=== PATIENT | male | born 1935 | race Caucasian/White ===

== ENCOUNTER 2021-05-06 17:07 | Inpatient (IN) | payer OTHER ==
[~2021-05-06] VITALS: Ht 190.5 cm; Wt 85.3 kg
[2021-05-06] MEDS ORDERED: PIPERACILLIN/TAZ 3.375G PREMIX 50 ML IV ONE (17:30)
[2021-05-06] MEDS ORDERED: VANCOMYCIN 1 G PREMIX 200 ML IV ONE (17:30)
[2021-05-06] MEDS ORDERED: SODIUM CHLORIDE 0.9% 1000ML BAG (SEPSIS BOLUS) IV ONE (17:30)
[2021-05-06] MEDS ORDERED: MAGNESIUM 2 G PREMIX 50 ML IV ONE (17:45)
[2021-05-06 17:53] LABS: HEMATOCRIT. 22.8 % (42.0-52.0); HEMOGLOBIN. 7.1 g/dL (14.0-18.0); MEAN CORPUSCULAR HEMOGLOBIN 26.3 pg (28.0-32.0); MEAN CORPUSCULAR VOLUME 83.9 fL (80.0-94.0); MEAN PLATELET VOLUME 7.4 fl (7.4-10.4); PLATELET 329 x1000/uL (130-400); RED BLOOD CELL COUNT 2.71 mill/uL (4.7-6.1)
[2021-05-06 17:56] LABS: CHLORIDE 97 mEq/L (98-107)
[2021-05-06 18:05] LABS: CREATINE KINASE 696 IU/L (39-308)
[2021-05-06 18:06] LABS: CLARITY URINE CLEAR (CLEAR); COLOR URINE DARK YELLOW (YELLOW); KETONES URINE TRACE (NEGATIVE); LEUKOCYTE ESTERASE URINE TRACE (NEGATIVE); NITRITE URINE NEGATIVE (NEGATIVE); OCCULT BLOOD URINE NEGATIVE (NEGATIVE); PROTEIN URINE TRACE (NEGATIVE); SPECIFIC GRAVITY URINE 1.023 (1.005-1.030)
[2021-05-06 18:22] LABS: PLATELET ESTIMATE NORMAL
[2021-05-06] MEDS ORDERED: IPRATROPIUM/ALBUTEROL 0.5-3(2.5)MG/3ML NEB HHN PRN (19:15)
[2021-05-06] MEDS ORDERED: GUAIFENESIN 200MG/10ML SUGAR FREE UDC PO PRN (19:15)
[2021-05-06] MEDS ORDERED: CLONIDINE 0.1MG TABLET PO PRN (19:15)
[2021-05-06] MEDS ORDERED: DOCUSATE SODIUM 100MG CAPSULE PO PRN (19:15)
[2021-05-06] MEDS ORDERED: HYDRALAZINE 20MG/ML VIAL IV PRN (19:15)
[2021-05-06] MEDS ORDERED: ONDANSETRON HCL 4MG/2ML INJ IV PRN (19:15)
[2021-05-06] MEDS ORDERED: DIPHENHYDRAMINE 50MG/ML VIAL IV PRN (19:15)
[2021-05-06] MEDS ORDERED: VANCOMYCIN 1 G PREMIX 200 ML IV SCH (19:15)
[2021-05-06] MEDS ORDERED: PIPERACILLIN/TAZ 3.375G PREMIX 50 ML IV NR (19:15)
[2021-05-06] MEDS ORDERED: MAGNESIUM/ALUMINUM HYDROXIDE/SIMETHICONE 30ML UDC PO PRN (19:15)
[2021-05-06] MEDS ORDERED: LORAZEPAM 2MG/ML CPJ IV PRN (19:15)
[2021-05-06] MEDS: DEXT 5%/0.45% NACL 1000ML 1,000 ML IV SCH (19:53)
[2021-05-06] MEDS ORDERED: PHENYLEPHRINE 50 MG in DEXT 5% WATER 245 ML IV PRN (20:30)
[2021-05-06] MEDS ORDERED: NOREPINEPHRINE 8MG/250ML PMX 250 ML IV PRN (20:30)
[2021-05-06] MEDS ORDERED: DILTIAZEM HCL 5MG/ML 5ML VIAL IV PRN (20:30)
[2021-05-06] MEDS ORDERED: BISACODYL 10MG SUPP PR NR (20:45)
[2021-05-06] MEDS: PHENYLEPHRINE 50 MG in DEXT 5% WATER 245 ML IV PRN (20:54)
[2021-05-06] MEDS: PANTOPRAZOLE SODIUM 40 MG/VIAL IV SCH (21:09)
[2021-05-06] MEDS: SODIUM CHLORIDE 0.9% INJ 3ML FLUSH IVF SCH (22:06)
[2021-05-07] VITALS (51 sets, daily range): BP systolic 82–120; BP diastolic 40–93
[2021-05-07] MEDS ORDERED: NOREPINEPHRINE 8 MG in DEXTROSE 5% WATER 250 ML IV PRN (01:00)
[2021-05-07] MEDS ORDERED: PIPERACILLIN/TAZOBACTAM 3.375G in DEXT 5% WATER 50ML IV SCH (06:00)
[2021-05-07] MEDS: SODIUM CHLORIDE 0.9% INJ 3ML FLUSH IVF SCH ×3 (06:00→22:47)
[2021-05-07] MEDS ORDERED: PIPERACILLIN/TAZ 3.375G PREMIX 50 ML IV SCH (06:20)
[2021-05-07 07:01] LABS: CHLORIDE 101 mEq/L (98-107)
[2021-05-07 07:02] LABS: BASOPHILS % 0.4 % (0.0-2.0); EOSINOPHILS % 0.9 % (0.0-5.0); HEMATOCRIT. 22.7 % (42.0-52.0); LYMPHOCYTES % 7.7 % (20.0-50.0); MEAN CORPUSCULAR HEMOGLOBIN 25.8 pg (28.0-32.0); MEAN CORPUSCULAR VOLUME 84.3 fL (80.0-94.0); MEAN PLATELET VOLUME 7.1 fl (7.4-10.4); MONOCYTES % 7.1 % (2.0-8.0); NEUTROPHILS % 83.9 % (40.0-76.0); PLATELET 309 x1000/uL (130-400); RED BLOOD CELL COUNT 2.69 mill/uL (4.7-6.1); RED CELL DISTRIBUTION WIDTH 17.9 % (11.6-14.6)
[2021-05-07 07:05] LABS: HEMOGLOBIN. 6.9 g/dL (14.0-18.0)
[2021-05-07] MEDS ORDERED: VANCOMYCIN 750 MG PREMIX 150 ML IV SCH (08:00)
[2021-05-07] MEDS: PANTOPRAZOLE SODIUM 40 MG/VIAL IV SCH (09:32)
[2021-05-07] MEDS: VANCOMYCIN 1 G PREMIX 200 ML IV SCH (11:34)
[2021-05-07] MEDS ORDERED: MIDO2.5T MT (13:03)
[2021-05-07] MEDS ORDERED: TRU10 EACHEYE (13:03)
[2021-05-07] MEDS ORDERED: ATOR40TA70 MT (13:03)
[2021-05-07] MEDS ORDERED: APIX2.5T MT (13:03)
[2021-05-07] MEDS ORDERED: TRAV2.5D9 EACHEYE (13:03)
[2021-05-07] MEDS ORDERED: LACT1CAP78 MT (13:03)
[2021-05-07] MEDS ORDERED: LIDOCAINE HCL 1% 10 MG/ML 10ML VIAL ONE (13:05)
[2021-05-07] MEDS ORDERED: CARB-32 MT (13:12)
[2021-05-07] MEDS ORDERED: DONE5TAB26 MT (13:12)
[2021-05-07 13:42] LABS: BG BASE EXCESS -2.6 mmol/L (-2.0-2.0); BG CARBOXYHEMOGLOBIN 0.3 % (0.5-1.5); BG DEOXYHEMOGLOBIN 2.7 % (0.0-5.0); BG FRACTION INSPIRED OXYGEN 21; BG HCO3 ACT 20.8 mmol/L (22.0-26.0); BG METHEMOGLOBIN 0.5 % (0.0-1.5); BG OXYGEN SATURATION 97.3 % (92.0-98.5); BG OXYHEMOGLOBIN 96.5 % (94.0-97.0); BG PCO2 30.1 mmHg (35.0-45.0); BG PH 7.458 (7.350-7.450); BG PO2 96.5 mmHg (75.0-100.0); BG SAMPLE SITE LEFT BRACHIAL; BG TOTAL HEMOGLOBIN 7.5 g/dL (12.0-18.0); BG VENT MODE ROOM AIR
[2021-05-07] MEDS: PIPERACILLIN/TAZOBACTAM 3.375 G in DEXTROSE 5% WATER 50 ML IV SCH ×2 (15:09→22:50)
[2021-05-07] MEDS: DEXT 5%/0.45% NACL 1000ML 1,000 ML IV SCH (15:16)
[2021-05-07] MEDS: MIDODRINE HCL 5MG TABLET PO SCH (17:14)
[2021-05-07] MEDS: PHENYLEPHRINE 50 MG in DEXT 5% WATER 245 ML IV PRN ×2 (17:15→23:54)
[2021-05-07 17:28] LABS: INR 1.2; PROTHROMBIN TIME 12.7 sec (9.6-11.0)
[2021-05-07] MEDS ORDERED: THIAMINE HCL 100 MG in SODIUM CHLORIDE 0.9% 49 ML IV ONE (17:30)
[2021-05-07 18:15] LABS: VITAMIN B12 SERUM >2000 pg/mL pg/mL (211-911)
[2021-05-08] VITALS (92 sets, daily range): BP systolic 87–128; BP diastolic 37–83
[2021-05-08 01:14] LABS: HEMATOCRIT 20.4 % (42.0-52.0); HEMOGLOBIN 6.7 g/dL (14.0-18.0)
[2021-05-08 01:53] LABS: HEMATOCRIT 23.4 % (42.0-52.0); HEMOGLOBIN 7.6 g/dL (14.0-18.0)
[2021-05-08] MEDS: SODIUM CHLORIDE 0.9% INJ 3ML FLUSH IVF SCH (06:00)
[2021-05-08] MEDS: DEXT 5%/0.45% NACL 1000ML 1,000 ML IV SCH ×2 (06:00→20:26)
[2021-05-08] MEDS: PIPERACILLIN/TAZOBACTAM 3.375 G in DEXTROSE 5% WATER 50 ML IV SCH ×3 (06:00→21:17)
[2021-05-08] MEDS: VANCOMYCIN 1 G PREMIX 200 ML IV SCH ×2 (06:00→23:37)
[2021-05-08] MEDS: MIDODRINE HCL 5MG TABLET PO SCH ×3 (08:18→17:13)
[2021-05-08] MEDS: PHENYLEPHRINE 50 MG in DEXT 5% WATER 245 ML IV PRN (08:18)
[2021-05-08] MEDS: PANTOPRAZOLE SODIUM 40 MG/VIAL IV SCH (08:18)
[2021-05-08 11:46] LABS: CHLORIDE 105 mEq/L (98-107)
[2021-05-08 11:58] LABS: HEMATOCRIT 22.3 % (42.0-52.0); HEMOGLOBIN 7.1 g/dL (14.0-18.0); MEAN CORPUSCULAR HEMOGLOBIN 26.7 pg (28.0-32.0); MEAN CORPUSCULAR VOLUME 83.4 fL (80.0-94.0); PLATELET 267 x1000/uL (130-400); RED BLOOD CELL COUNT 2.67 mill/uL (4.7-6.1); RED CELL DISTRIBUTION WIDTH 17.1 % (11.6-14.6)
[2021-05-08] MEDS: THIAMINE HCL 100MG TABLET PO SCH (20:26)
[2021-05-09] VITALS (90 sets, daily range): BP systolic 81–129; BP diastolic 33–68
[2021-05-09] MEDS: PIPERACILLIN/TAZOBACTAM 3.375 G in DEXTROSE 5% WATER 50 ML IV SCH ×3 (05:35→22:06)
[2021-05-09 05:47] LABS: BASOPHILS % 0.3 % (0.0-2.0); EOSINOPHILS % 0.6 % (0.0-5.0); HEMATOCRIT. 22.9 % (42.0-52.0); HEMOGLOBIN. 7.2 g/dL (14.0-18.0); LYMPHOCYTES % 9.1 % (20.0-50.0); MEAN CORPUSCULAR HEMOGLOBIN 26.6 pg (28.0-32.0); MEAN CORPUSCULAR VOLUME 84.6 fL (80.0-94.0); MEAN PLATELET VOLUME 7.1 fl (7.4-10.4); PLATELET 273 x1000/uL (130-400); RED CELL DISTRIBUTION WIDTH 17.1 % (11.6-14.6)
[2021-05-09 05:55] LABS: CHLORIDE 105 mEq/L (98-107)
[2021-05-09] MEDS: PHENYLEPHRINE 50 MG in DEXT 5% WATER 245 ML IV PRN (06:56)
[2021-05-09] MEDS ORDERED: KCL 20MEQ/100ML PREMIX 100 ML IV SCH ×2 (10:00→12:00)
[2021-05-09] MEDS: THIAMINE HCL 100MG TABLET PO SCH (10:08)
[2021-05-09] MEDS: MIDODRINE HCL 5MG TABLET PO SCH ×3 (10:08→16:34)
[2021-05-09] MEDS: PANTOPRAZOLE SODIUM 40 MG/VIAL IV SCH (10:08)
[2021-05-09] MEDS: DEXT 5%/0.45% NACL 1000ML 1,000 ML IV SCH (13:29)
[2021-05-09] MEDS: ACETAMINOPHEN 325MG TABLET PO PRN (16:33)
[2021-05-09] MEDS: VANCOMYCIN 1 G PREMIX 200 ML IV SCH (18:19)
[2021-05-10] VITALS (44 sets, daily range): BP systolic 92–122; BP diastolic 37–74
[2021-05-10] MEDS: DEXT 5%/0.45% NACL 1000ML 1,000 ML IV SCH ×2 (05:27→23:34)
[2021-05-10] MEDS: PIPERACILLIN/TAZOBACTAM 3.375 G in DEXTROSE 5% WATER 50 ML IV SCH ×2 (05:28→15:56)
[2021-05-10 06:21] LABS: BASOPHILS % 0.6 % (0.0-2.0); EOSINOPHILS % 0.8 % (0.0-5.0); HEMATOCRIT. 21.8 % (42.0-52.0); LYMPHOCYTES % 13.9 % (20.0-50.0); MEAN CORPUSCULAR HEMOGLOBIN 26.5 pg (28.0-32.0); MEAN PLATELET VOLUME 7.3 fl (7.4-10.4); MONOCYTES % 7.4 % (2.0-8.0); NEUTROPHILS % 77.3 % (40.0-76.0); PLATELET 256 x1000/uL (130-400); RED BLOOD CELL COUNT 2.57 mill/uL (4.7-6.1); RED CELL DISTRIBUTION WIDTH 17.3 % (11.6-14.6)
[2021-05-10 06:28] LABS: CHLORIDE 108 mEq/L (98-107)
[2021-05-10 06:33] LABS: HEMOGLOBIN. 6.8 g/dL (14.0-18.0)
[2021-05-10] MEDS: MIDODRINE HCL 5MG TABLET PO SCH ×3 (09:31→16:00)
[2021-05-10] MEDS: PANTOPRAZOLE SODIUM 40 MG/VIAL IV SCH (09:31)
[2021-05-10] MEDS: THIAMINE HCL 100MG TABLET PO SCH (09:31)
[2021-05-10] MEDS: VANCOMYCIN 1 G PREMIX 200 ML IV SCH (12:24)
[2021-05-10 17:49] LABS: HEMATOCRIT 26.7 % (42.0-52.0); HEMOGLOBIN 8.7 g/dL (14.0-18.0)
[2021-05-10] MEDS: ACETAMINOPHEN 325MG TABLET PO PRN (20:37)
[2021-05-10] MEDS: AMPICILLIN/SULBACTAM 3G in SODIUM CHLORIDE 0.9% 100ML IV SCH (21:02)
[2021-05-11] VITALS (12 sets, daily range): BP systolic 102–134; BP diastolic 46–69
[2021-05-11] MEDS: AMPICILLIN/SULBACTAM 3G in SODIUM CHLORIDE 0.9% 100ML IV SCH ×4 (02:54→20:50)
[2021-05-11 05:36] LABS: CHLORIDE 109 mEq/L (98-107)
[2021-05-11 06:12] LABS: HEMATOCRIT. 24.4 % (42.0-52.0); HEMOGLOBIN. 7.7 g/dL (14.0-18.0); MEAN CORPUSCULAR HEMOGLOBIN 27.6 pg (28.0-32.0); MEAN CORPUSCULAR VOLUME 87.7 fL (80.0-94.0); MEAN PLATELET VOLUME 7.2 fl (7.4-10.4); PLATELET 226 x1000/uL (130-400); RED BLOOD CELL COUNT 2.78 mill/uL (4.7-6.1); RED CELL DISTRIBUTION WIDTH 17.2 % (11.6-14.6)
[2021-05-11] MEDS: THIAMINE HCL 100MG TABLET PO SCH (08:25)
[2021-05-11] MEDS: PANTOPRAZOLE SODIUM 40 MG/VIAL IV SCH (08:25)
[2021-05-11] MEDS: MIDODRINE HCL 5MG TABLET PO SCH ×3 (08:30→17:22)
[2021-05-11 11:10] LABS: PLATELET ESTIMATE NORMAL
[2021-05-11] MEDS: ACETAMINOPHEN 325MG TABLET PO PRN (13:37)
[2021-05-11] MEDS: DEXT 5%/0.45% NACL 1000ML 1,000 ML IV SCH (14:44)
[2021-05-12] VITALS (10 sets, daily range): BP systolic 102–136; BP diastolic 49–73
[2021-05-12] MEDS: ACETAMINOPHEN 325MG TABLET PO PRN ×2 (02:24→16:31)
[2021-05-12] MEDS: AMPICILLIN/SULBACTAM 3G in SODIUM CHLORIDE 0.9% 100ML IV SCH ×4 (02:28→21:31)
[2021-05-12 07:51] LABS: BASOPHILS % 0.9 % (0.0-2.0); EOSINOPHILS % 1.6 % (0.0-5.0); HEMATOCRIT. 24.9 % (42.0-52.0); LYMPHOCYTES % 17.9 % (20.0-50.0); MEAN CORPUSCULAR HEMOGLOBIN 27.1 pg (28.0-32.0); MEAN CORPUSCULAR VOLUME 84.8 fL (80.0-94.0); MEAN PLATELET VOLUME 7.1 fl (7.4-10.4); MONOCYTES % 8.9 % (2.0-8.0); NEUTROPHILS % 70.7 % (40.0-76.0); PLATELET 253 x1000/uL (130-400); RED BLOOD CELL COUNT 2.94 mill/uL (4.7-6.1); RED CELL DISTRIBUTION WIDTH 17.2 % (11.6-14.6)
[2021-05-12 08:00] LABS: CHLORIDE 109 mEq/L (98-107)
[2021-05-12] MEDS ORDERED: LIDOCAINE HCL 2% JELLY 5ML TOP ONE (09:00)
[2021-05-12] MEDS ORDERED: LIDOCAINE HCL 1% 20ML VIAL (Pyxis) INJ INFIL ONE (09:00)
[2021-05-12] MEDS: DEXT 5%/0.45% NACL 1000ML 1,000 ML IV SCH (10:00)
[2021-05-12] MEDS: MIDODRINE HCL 5MG TABLET PO SCH ×3 (10:01→16:31)
[2021-05-12] MEDS: FAMOTIDINE 20MG/2ML VIAL IV SCH (10:01)
[2021-05-12] MEDS: THIAMINE HCL 100MG TABLET PO SCH (10:01)
[2021-05-12] MEDS ORDERED: DORZ10DR8 EACHEYE (12:57)
[2021-05-12] MEDS: SODIUM HYPOCHLORITE 0.125% 473ML SOLUTION TOP SCH (14:44)
[2021-05-13] VITALS: BP 115/50
[2021-05-13] MEDS: DEXT 5%/0.45% NACL 1000ML 1,000 ML IV SCH (02:10)
[2021-05-13] MEDS: AMPICILLIN/SULBACTAM 3G in SODIUM CHLORIDE 0.9% 100ML IV SCH ×2 (02:11→08:16)
[2021-05-13 04:00] VITALS: BP 123/64
[2021-05-13] MEDS: FAMOTIDINE 20MG/2ML VIAL IV SCH (08:16)
[2021-05-13] MEDS: THIAMINE HCL 100MG TABLET PO SCH (08:16)
[2021-05-13] MEDS: MIDODRINE HCL 5MG TABLET PO SCH ×2 (08:16→13:00)
[2021-05-13 08:17] VITALS: BP 130/57
[2021-05-13] MEDS: SODIUM HYPOCHLORITE 0.125% 473ML SOLUTION TOP SCH (08:17)
[2021-05-13 10:07] VITALS: BP 130/56
[2021-05-13 12:00] VITALS: BP 126/52
[2021-05-13] MEDS: ACETAMINOPHEN 325MG TABLET PO PRN (13:00)
== END 2021-05-13 18:44 | disposition short-term general hospital (02) | DRG 853 ==
LOC: ER 17:07 → SUPCPDRO 18:36 → MICUSO 18:46 → EDBEDREQTM 18:47 → EDBEDREQ 18:47 → SUPCPDRO 19:13 → ENRESERV 20:32 → CANRESERV 20:32 → EDBEDREQSVC 21:35 → CVICU 05-07 11:11 → 5EST 05-10 14:39
PROVIDERS: ADMIT Internal Medicine; ATTEND Internal Medicine
PROC: 05HY33Z Insertion of Infusion Device into Upper Vein, Percutaneous Approach (ICD-10-PCS; 2021-05-07)
PROC: B54NZZA Ultrasonography of Left Upper Extremity Veins, Guidance (ICD-10-PCS; 2021-05-07)
PROC: 30233N1 Transfusion of Nonautologous Red Blood Cells into Peripheral Vein, Percutaneous Approach (ICD-10-PCS; 2021-05-07)
PROC: 4A10X4Z Monitoring of Central Nervous Electrical Activity, External Approach (ICD-10-PCS; principal; 2021-05-10)
PROC: 0KBV0ZZ Excision of Right Foot Muscle, Open Approach (ICD-10-PCS; 2021-05-12)
DX: A41.9 Sepsis, unspecified organism (principal); E43 Unspecified severe protein-calorie malnutrition; I21.A1 Myocardial infarction type 2; J18.9 Pneumonia, unspecified organism; R65.21 Severe sepsis with septic shock; J96.00 Acute respiratory failure, unspecified whether with hypoxia or hypercapnia; G93.40 Encephalopathy, unspecified; E87.1 Hypo-osmolality and hyponatremia; M62.82 Rhabdomyolysis; I48.20 Chronic atrial fibrillation, unspecified; L97.415 Non-pressure chronic ulcer of right heel and midfoot with muscle involvement without evidence of necrosis; E78.5 Hyperlipidemia, unspecified; D64.9 Anemia, unspecified; I10 Essential (primary) hypertension; N40.1 Benign prostatic hyperplasia with lower urinary tract symptoms; R33.8 Other retention of urine; F02.80 Dementia in other diseases classified elsewhere, unspecified severity, without behavioral disturbance, psychotic disturbance, mood disturbance, and anxiety; K56.41 Fecal impaction; K57.90 Diverticulosis of intestine, part unspecified, without perforation or abscess without bleeding; R74.01 Elevation of levels of liver transaminase levels; G20 Parkinson's disease; L89.890 Pressure ulcer of other site, unstageable; L89.210 Pressure ulcer of right hip, unstageable; L89.220 Pressure ulcer of left hip, unstageable; M24.59 Contracture, other specified joint; I73.9 Peripheral vascular disease, unspecified; S90.32XA Contusion of left foot, initial encounter; S90.31XA Contusion of right foot, initial encounter; X58.XXXA Exposure to other specified factors, initial encounter; Z77.090 Contact with and (suspected) exposure to asbestos; I49.3 Ventricular premature depolarization; Z20.822 Contact with and (suspected) exposure to COVID-19; Z88.5 Allergy status to narcotic agent; Z91.041 Radiographic dye allergy status; Z79.899 Other long term (current) drug therapy; Z86.73 Personal history of transient ischemic attack (TIA), and cerebral infarction without residual deficits; Z68.23 Body mass index [BMI] 23.0-23.9, adult; Z74.01 Bed confinement status; Y93.89 Activity, other specified; Y92.89 Other specified places as the place of occurrence of the external cause; Y99.8 Other external cause status; Z79.01 Long term (current) use of anticoagulants; I25.2 Old myocardial infarction
CPT/HCPCS: 36415; 36600; 71045; 74018; 74176; 76937; 80048; 80053; 80202; 81003; 82040; 82270; 82375; 82550; 82607; 82805; 83605; 83880; 84134; 84145; 84153; 84443; 84484; 85014; 85018; 85025; 85027; 86850; 86900; 86920; 87070; 87075; 87077; 87106; 87186; 87426; 93005; 93306; 93923; 93970; 95816; 99291; C1725; C9113; J0295; J2370; J2543; J3370; J3411; J3475; J3480; J3490; J7030; J7040; J7050; J7060; J7070; P9021; A4315; G0103